=== PATIENT | female | born 1970 | race Caucasian/White ===

== ENCOUNTER 2021-06-27 13:00 | Emergency (ER) | payer BC ==
[2021-06-27 14:56] LABS: HEMOGLOBIN 14.3 gm/dl (12.3-15.3); RED BLOOD COUNT 4.89 M/UL (4.00-5.10); WHITE BLOOD COUNT 11.1 K/UL (4.5-11.0)
[2021-06-27 15:43] LABS: BUN/CREATININE RATIO 16 (0-10)
[2021-06-27] MEDS ORDERED: ONDANSETRON ODT4 MG SL (17:24)
[2021-06-29 08:15] LABS: CEA 0.9 ng/mL (0.0-4.7)
== END 2021-06-27 17:44 | disposition home or self-care (01) ==
LOC: ER1 13:00
PROVIDERS: Physician Assistant
DX: K76.9 Liver disease, unspecified (principal); R18.8 Other ascites; K21.9 Gastro-esophageal reflux disease without esophagitis; I10 Essential (primary) hypertension; Z88.1 Allergy status to other antibiotic agents
CPT/HCPCS: 80053; 82378; 83690; 85025; 86304; 96374; 99284; J1885; Q9967

== ENCOUNTER → 2021-06-29 | Outpatient (CLI) | payer BC ==
[~2021-06-29] MED LIST: ONDANSETRON ODT4 MG SL
== END ==
LOC: OPSV 12:41 → US 13:00
DX: R18.8 Other ascites (principal); K76.9 Liver disease, unspecified

== ENCOUNTER 2021-07-08 15:18 | Inpatient (IN) | payer BC ==
[~2021-07-08] VITALS: Ht 165.1 cm; Wt 62.1 kg
[2021-07-08 16:31] LABS: HEMOGLOBIN 15.4 gm/dl (12.3-15.3); RED BLOOD COUNT 5.11 M/UL (4.00-5.10); WHITE BLOOD COUNT 28.5 K/UL (4.5-11.0)
[2021-07-08 20:15] LABS: BODY FLUID SOURCE PERITONEAL; RBC (AUTOMATED) 500 10^6; WBC (AUTOMATED) 42 10^3
[2021-07-08 20:16] LABS: MONONUCLEAR CELLS 61.9 %; POLYMORPHONUCLEAR 38.1 %
[2021-07-08 20:35] LABS: LDH, BODY FLUID 51 U/L
[2021-07-09 05:33] LABS: HEMOGLOBIN 14.5 gm/dl (12.3-15.3); RED BLOOD COUNT 5.03 M/UL (4.00-5.10); WHITE BLOOD COUNT 21.9 K/UL (4.5-11.0)
[2021-07-09] MEDS ORDERED: ROXICODONE5 MG PO (10:07)
[2021-07-09] MEDS ORDERED: MS CONTIN30 MG PO (10:07)
[2021-07-09] MEDS ORDERED: METOCLOPRAMIDE10 MG PO (10:08)
[2021-07-09] MEDS ORDERED: PROTONIX 40 MG40 M1 PO (10:08)
[2021-07-09] MEDS ORDERED: POTASSIUM CHLO10 ME1 PO (10:09)
[2021-07-09] MEDS ORDERED: LOSARTAN POTASS25 MG PO (10:09)
[2021-07-09] MEDS ORDERED: DRISDOL1250 MCG PO (10:09)
[2021-07-09] MEDS ORDERED: AIMOVIG AU70 MG/1 ML SQ (10:11)
[2021-07-09] MEDS ORDERED: NURTEC ODT75 MG PO (10:12)
[2021-07-09] MEDS ORDERED: PROAIR DIGIHAL90 MCG INH (10:12)
[2021-07-09] MEDS ORDERED: AJOVY225 MG/1.5 SQ (10:12)
[2021-07-09] MEDS ORDERED: MEGA BIOTIN10000 MCG PO (10:13)
[2021-07-10 05:57] LABS: HEMOGLOBIN 13.1 gm/dl (12.3-15.3)
[2021-07-10 05:58] LABS: RED BLOOD COUNT 4.49 M/UL (4.00-5.10); WHITE BLOOD COUNT 13.5 K/UL (4.5-11.0)
[2021-07-10 06:26] LABS: BUN/CREATININE RATIO 25 (0-10)
[2021-07-11 06:53] LABS: HEMOGLOBIN 13.3 gm/dl (12.3-15.3); RED BLOOD COUNT 4.53 M/UL (4.00-5.10); WHITE BLOOD COUNT 10.6 K/UL (4.5-11.0)
[2021-07-11 07:15] LABS: BUN/CREATININE RATIO 23 (0-10)
[2021-07-12 06:38] LABS: HEMOGLOBIN 13.3 gm/dl (12.3-15.3); RED BLOOD COUNT 4.6 M/UL (4.00-5.10)
[2021-07-12 07:02] LABS: BUN/CREATININE RATIO 24 (0-10)
[2021-07-12] MEDS ORDERED: ALDACTONE 25MG25 MG PO (14:58)
[2021-07-12] MEDS ORDERED: FUROSEMIDE20 MG PO (14:58)
[2021-07-12] MEDS ORDERED: CHRONULAC20 GM/30 M PO (14:58)
--- NOTE | 2021-07-12 15:05 | NUR ---
PT ROOM AIR SPO2 87%
== END 2021-07-12 17:07 | disposition home or self-care (01) | DRG 432 ==
LOC: ER1 15:18 → CDU 20:25 → MED SURG 4 07-09 13:50
PROVIDERS: Internal Medicine; Student in an Organized Health Care Education/Training Program; ADMIT Internal Medicine Infectious Disease
PROC: 0W9G3ZX Drainage of Peritoneal Cavity, Percutaneous Approach, Diagnostic (ICD-10-PCS; principal; 2021-07-08)
DX: K74.60 Unspecified cirrhosis of liver (principal); U07.1 COVID-19; J96.01 Acute respiratory failure with hypoxia; J15.9 Unspecified bacterial pneumonia; C22.0 Liver cell carcinoma; R18.8 Other ascites; K76.6 Portal hypertension; I10 Essential (primary) hypertension; K52.9 Noninfective gastroenteritis and colitis, unspecified; Z99.81 Dependence on supplemental oxygen; Z90.49 Acquired absence of other specified parts of digestive tract; Z90.710 Acquired absence of both cervix and uterus; Z88.1 Allergy status to other antibiotic agents; Z80.3 Family history of malignant neoplasm of breast
CPT/HCPCS: 36600; 71045; 80053; 81001; 82803; 82945; 83605; 83615; 83690; 84132; 84157; 85025; 87040; 87070; 89051; 94640; 94664; 94760; 96365; 96366; 96375; 96376; 99285; C9113; J0456; J1650; J2270; J2405; J2543; J3370; J7030; P9047; Q9967; U0002

== ENCOUNTER → 2021-07-25 | Outpatient (CLI) | payer BC ==
[~2021-07-25] MED LIST changes: +AIMOVIG AU70 MG/1 ML SQ; +AJOVY225 MG/1.5 SQ; +ALDACTONE 25MG25 MG PO; +CHRONULAC20 GM/30 M PO; +DRISDOL1250 MCG PO; +FUROSEMIDE20 MG PO; +LOSARTAN POTASS25 MG PO; +MEGA BIOTIN10000 MCG PO; +METOCLOPRAMIDE10 MG PO; +MS CONTIN30 MG PO; +NURTEC ODT75 MG PO; +POTASSIUM CHLO10 ME1 PO; +PROAIR DIGIHAL90 MCG INH; +PROTONIX 40 MG40 M1 PO; +ROXICODONE5 MG PO
[2021-07-25 08:17] LABS: HEMOGLOBIN 14.2 gm/dl (12.3-15.3); RED BLOOD COUNT 4.85 M/UL (4.00-5.10); WHITE BLOOD COUNT 18.2 K/UL (4.5-11.0)
== END ==
LOC: OR 07:26 → US 10:00
PROVIDERS: Internal Medicine Hematology & Oncology
DX: K74.00 Hepatic fibrosis, unspecified (principal); R18.8 Other ascites
CPT/HCPCS: 36415; 76705; 76942; 85027; 85610

== ENCOUNTER 2021-08-06 23:34 | Observation (INO) | payer BC ==
[~2021-08-06] VITALS: Ht 165.1 cm; Wt 55.8 kg
[~2021-08-06 23:34] MED LIST changes: -MS CONTIN30 MG PO; -ROXICODONE5 MG PO
[2021-08-07 00:54] LABS: RED BLOOD COUNT 5.11 M/UL (4.00-5.10); WHITE BLOOD COUNT 14.8 K/UL (4.5-11.0)
[2021-08-07 01:20] LABS: BUN/CREATININE RATIO 28 (0-10)
[2021-08-07] MEDS ORDERED: ROXICODONE TAB 55 MG PO (10:07)
[2021-08-07] MEDS ORDERED: MORPHINE SULFAT30 M4 PO (10:07)
[2021-08-07] MEDS ORDERED: HYDROXYZINE HCL10 MG PO (12:18)
[2021-08-07] MEDS ORDERED: ALDACTONE 25MG25 MG PO (12:22)
[2021-08-07] MEDS ORDERED: PROVENTIL HFA6.7 GM INH (12:29)
[2021-08-07 12:35] LABS: BODY FLUID SOURCE ASCITES; MONONUCLEAR CELLS 83.8 (75-100); POLYMORPHONUCLEAR % 16.2 (0-25); RBC (AUTOMATED) 100 (0-100000); WBC (AUTOMATED) 74 (0-500)
[2021-08-08 04:00] LABS: HEMOGLOBIN 14.6 gm/dl (12.3-15.3); RED BLOOD COUNT 4.72 M/UL (4.00-5.10); WHITE BLOOD COUNT 16.4 K/UL (4.5-11.0)
[2021-08-08] MEDS ORDERED: LEVOFLOXACIN750 MG PO (08:43)
[2021-08-08] MEDS ORDERED: METRONIDAZOLE250 MG PO (08:43)
== END 2021-08-08 09:27 | disposition home or self-care (01) ==
LOC: ER1 23:34 → CDU 08-07 03:43 → M/S 08-07 03:43
PROVIDERS: Family Medicine; Internal Medicine; ADMIT Internal Medicine
DX: K74.60 Unspecified cirrhosis of liver (principal); C22.0 Liver cell carcinoma; R18.8 Other ascites; U07.1 COVID-19; I10 Essential (primary) hypertension; J90 Pleural effusion, not elsewhere classified; E87.2 Acidosis; R00.0 Tachycardia, unspecified; E80.6 Other disorders of bilirubin metabolism; K59.00 Constipation, unspecified; K76.6 Portal hypertension; Z90.49 Acquired absence of other specified parts of digestive tract; Z88.1 Allergy status to other antibiotic agents; Z80.3 Family history of malignant neoplasm of breast
CPT/HCPCS: 36415; 36600; 71045; 80053; 80076; 81001; 82140; 82248; 82550; 82553; 82803; 83605; 83690; 83880; 84484; 85025; 85610; 87040; 87070; 87086; 87205; 89051; 93005; 96372; 96374; 96375; 99285; G0378; J0696; J1650; J1940; J7030; U0002

== ENCOUNTER 2021-08-13 16:25 | Emergency (ER) | payer BC ==
[~2021-08-13 16:25] MED LIST changes: +HYDROXYZINE HCL10 MG PO; +LEVOFLOXACIN750 MG PO; +METRONIDAZOLE250 MG PO; +MORPHINE SULFAT30 M4 PO; +PROVENTIL HFA6.7 GM INH; +ROXICODONE TAB 55 MG PO
[2021-08-14] MEDS ORDERED: LACTULOSE10 GM/15 M PO (09:35)
== END 2021-08-13 20:29 | disposition left against medical advice (07) ==
LOC: ER1 16:25
DX: R18.8 Other ascites (principal); R10.9 Unspecified abdominal pain; R10.817 Generalized abdominal tenderness; I10 Essential (primary) hypertension; Z88.1 Allergy status to other antibiotic agents
CPT/HCPCS: 99283; J7030

== ENCOUNTER 2021-08-14 00:13 | Inpatient (IN) | payer BC ==
[~2021-08-14] VITALS: Ht 165.1 cm; Wt 55.8 kg
[2021-08-14 02:13] LABS: HEMOGLOBIN 16.1 gm/dl (12.3-15.3); RED BLOOD COUNT 5.34 M/UL (4.00-5.10); WHITE BLOOD COUNT 21.7 K/UL (4.5-11.0)
[2021-08-14 04:24] LABS: BODY FLUID SOURCE PERITONEAL
[2021-08-14 04:26] LABS: RBC (AUTOMATED) 100 (0-100000); WBC (AUTOMATED) 63 (0-500)
[2021-08-14 04:27] LABS: MONONUCLEAR CELLS 79 (75-100); POLYMORPHONUCLEAR % 21 (0-25)
[2021-08-14 04:41] LABS: LDH, BODY FLUID 39 U/L; TOTAL PROTEIN, BODY FLUID 0.9 gm/dL
[2021-08-14 04:52] LABS: BUN/CREATININE RATIO 27 (0-10)
[2021-08-14] MEDS ORDERED: LACTULOSE10 GM/15 M PO (09:35)
--- NOTE | 2021-08-14 14:34 | NUR ---
spoken with r/t patient scheduled for liver biopsy outpatient if patient needs to continue to have the procedure because she is inpatient status at this time. dr avila yes to continue as scheduled and for pathologist to be available. informed coy from us/radiology of the above and acknowledged.
[2021-08-15 03:35] LABS: WHITE BLOOD COUNT 16.8 K/UL (4.5-11.0)
[2021-08-15 03:44] LABS: HEMOGLOBIN 13.5 gm/dl (12.3-15.3); RED BLOOD COUNT 4.43 M/UL (4.00-5.10)
--- NOTE | 2021-08-15 09:18 | NUR ---
patient has been off the floor for liver biopsy
[2021-08-16 07:29] LABS: HEMOGLOBIN 13.5 gm/dl (12.3-15.3); RED BLOOD COUNT 4.39 M/UL (4.00-5.10); WHITE BLOOD COUNT 17.9 K/UL (4.5-11.0)
[2021-08-17 09:58] LABS: HEMOGLOBIN 13.6 gm/dl (12.3-15.3); RED BLOOD COUNT 4.41 M/UL (4.00-5.10); WHITE BLOOD COUNT 19.8 K/UL (4.5-11.0)
--- NOTE | 2021-08-18 08:10 | NUR ---
LEFT ARM IS SWOLLEN FROM PREVIOUS INFILTRATED IV, INSTRUCTED TO KEEP ELEVATED AND MONITOR FOR CHANGE IN COLOR, INCREASED SWELLING, INCREASED PAIN
[2021-08-18] MEDS ORDERED: LEVOFLOXACIN500 MG PO (10:00)
[2021-08-18] MEDS ORDERED: MIDODRINE HCL2.5 MG PO (10:00)
== END 2021-08-18 12:38 | disposition home or self-care (01) | DRG 441 ==
LOC: ER1 00:13 → CDU 08:34 → M/S 11:37
PROVIDERS: Family Medicine; Internal Medicine Nephrology; Physician Assistant; ADMIT Internal Medicine
PROC: 0FB13ZX Excision of Right Lobe Liver, Percutaneous Approach, Diagnostic (ICD-10-PCS; principal; 2021-08-15)
PROC: BW40ZZZ Ultrasonography of Abdomen (ICD-10-PCS; 2021-08-15)
DX: K76.7 Hepatorenal syndrome (principal); N17.0 Acute kidney failure with tubular necrosis; R18.8 Other ascites; E87.1 Hypo-osmolality and hyponatremia; K76.6 Portal hypertension; R64 Cachexia; U09.9 Post COVID-19 condition, unspecified; K74.60 Unspecified cirrhosis of liver; E86.0 Dehydration; K21.9 Gastro-esophageal reflux disease without esophagitis; G43.919 Migraine, unspecified, intractable, without status migrainosus; I10 Essential (primary) hypertension; G89.4 Chronic pain syndrome; Z87.440 Personal history of urinary (tract) infections; Z87.01 Personal history of pneumonia (recurrent); Z98.51 Tubal ligation status; Z90.49 Acquired absence of other specified parts of digestive tract; Z90.710 Acquired absence of both cervix and uterus; Z88.1 Allergy status to other antibiotic agents; Z68.20 Body mass index [BMI] 20.0-20.9, adult
CPT/HCPCS: 36415; 71045; 76942; 80048; 80053; 81001; 82140; 82248; 82550; 82553; 82803; 82945; 83605; 83615; 83690; 83735; 84100; 84157; 84484; 85025; 85610; 85652; 85730; 86140; 87040; 87070; 87086; 87205; 89051; 93005; 94760; 99285; J1956; J2354; J2405; J7030; P9047; U0002